=== PATIENT | female | born 1995 ===

== ENCOUNTER 2022-06-24 06:20 | Inpatient (IN) | payer OTHER ==
[~2022-06-24] VITALS: Ht 154.9 cm; Wt 3.2 kg
[2022-06-24] MEDS ORDERED: PRENA1 TRUE CO1 EACH PO (08:24)
[2022-06-26] MEDS ORDERED: NIFEDIPINE10 M1 (13:06)
== END 2022-06-28 13:39 | disposition home or self-care (01) | DRG 786 ==
LOC: LDR 06:20 → O/R 06-25 22:53 → OB/GYN 06-26 00:56
PROVIDERS: ADMIT Obstetrics & Gynecology; ATTEND Obstetrics & Gynecology
PROC: 4A1HXCZ Monitoring of Products of Conception, Cardiac Rate, External Approach (ICD-10-PCS; 2022-06-24)
PROC: 3E0P7VZ Introduction of Hormone into Female Reproductive, Via Natural or Artificial Opening (ICD-10-PCS; 2022-06-24)
PROC: 3E033VJ Introduction of Other Hormone into Peripheral Vein, Percutaneous Approach (ICD-10-PCS; 2022-06-25)
PROC: 10D00Z1 Extraction of Products of Conception, Low, Open Approach (ICD-10-PCS; principal; 2022-06-25 22:15)
DX: O61.0 Failed medical induction of labor (principal); K83.1 Obstruction of bile duct; O60.14X0 Preterm labor third trimester with preterm delivery third trimester, not applicable or unspecified; O26.62 Liver and biliary tract disorders in childbirth; O62.1 Secondary uterine inertia; O14.04 Mild to moderate pre-eclampsia, complicating childbirth; Z3A.36 36 weeks gestation of pregnancy; Z37.0 Single live birth